=== PATIENT | female | born 1990 | race Caucasian/White ===

== ENCOUNTER 2017-11-04 12:35 | Emergency (ER) | payer OTHER ==
--- NOTE | 2017-11-04 13:46 | ED PDOC ---
HPI: General Adult Time Seen by Provider: 11/04/17 12:48 Chief Complaint (Nursing): ENT Problem History Per: Patient Additional Complaint(s): Pt. states for the past 3 days she's had R earache. Denies hearing changes, cough and congestion (contrary to triage note), fever, headache, recent swimming , hx of DM. Past Medical History Reviewed: Historical Data, Nursing Documentation, Vital Signs Vital Signs: Last Vital Signs Temp 98.2 F 11/04/17 12:38 Pulse 95 H 11/04/17 12:38 Resp 18 11/04/17 12:38 BP 141/81 11/04/17 12:38 Pulse Ox 97 11/04/17 12:38 - Family History Family History: States: No Known Family Hx - Home Medications Home Medications: Ambulatory Orders Medication Instructions Recorded Neomycin/Polymyxin/Hydrocortis 1 drop AD Q3 #1 bottle 11/04/17 [Cortisporin Otic Susp] - Allergies Allergies/Adverse Reactions: Allergies Allergy/AdvReac Type Severity Reaction Status Date / Time No Known Allergies Allergy Verified 11/04/17 12:41 Review of Systems ROS Statement: Except As Marked, All Systems Reviewed And Found Negative ENT: Positive for: Ear Pain Physical Exam - Physical Exam Appears: Positive for: Well, Non-toxic, No Acute Distress Skin: Positive for: Normal Color, Warm. Negative for: Rash Eye Exam: Positive for: Normal appearance, EOMI, PERRL ENT: Positive for: TM Is/Are (non-erythematous, non-bulging b/l), Other (R ear canal is edematous and erythematous - pain with pulling on tragus; L ear canal WNL; no mastoid tenderness or swelling; no swelling or erythema to both auricles ). Negative for: Pharyngeal Erythema, Tonsillar Exudate, Tonsillar Swelling Neck: Positive for: Normal, Painless ROM - ECG O2 Sat by Pulse Oximetry: 97 Disposition - Clinical Impression Clinical Impression: Otitis externa - Patient ED Disposition Is Patient to be Admitted: No - Disposition Referrals: Miranda Carlson [Outside] Disposition: Routine/Home Disposition Time: 13:15 Condition: STABLE Additional Instructions: ROCK HOLM, thank you for letting us take care of you today. Your provider was Pippa Palm MD and you were treated for RIGHT EARACHE. The emergency medical care you received today was directed at your acute symptoms. If you were prescribed any medication, please fill it and take as directed. It may take several days for your symptoms to resolve. Return to the Emergency Department if your symptoms worsen, do not improve, or if you have any other problems. Please contact your doctor or call one of the physicians/clinics you have been referred to that are listed on the Patient Visit Information form that is included in your discharge packet. Bring any paperwork you were given at discharge with you along with any medications you are taking to your follow up visit. Our treatment cannot replace ongoing medical care by a primary care provider outside of the emergency department. Thank you for allowing the [facility] team to be part of your care today. If you had an X-Ray or CT scan: A Radiologist will review the ED reading if any change in treatment is needed we will contact you. If you had a blood, urine, or wound culture: It will take several days for the results, if any change in treatment is needed we will contact you. If you had an STI test: It will take 48 hours for the results. Please call after 1 week if you have not heard back. Prescriptions: Neomycin/Polymyxin/Hydrocortis [Cortisporin Otic Susp] 1 drop AD Q3 #1 bottle Instructions: Outer Ear Infection (DC) Forms: [employer] ([place]istani) Print Language: [place]
[2017-11-04 14:04] VITALS: BP 131/80; PULSE 85; RESP 16; TEMP 98.1; O2SAT 99
== END 2017-11-04 14:04 | disposition home or self-care (01) ==
LOC: H.ER 12:35
DX: H60.91 Unspecified otitis externa, right ear (principal)